=== PATIENT | male | born 1950 | race Native Hawaiian/Other Pacific Islander ===

== ENCOUNTER 2017-07-19 17:18 | Emergency (ER) | payer OTHER, MEDICARE ==
[~2017-07-19] VITALS: Ht 165.1 cm; Wt 86.2 kg
[2017-07-19 20:04] VITALS: BP 166/90; TEMP 95.5
== END 2017-07-19 20:05 | disposition home or self-care (01) ==
LOC: ED 17:18
PROC: 08C8XZZ Extirpation of Matter from Right Cornea, External Approach (ICD-10-PCS; principal; 2017-07-19)
DX: T15.01XA Foreign body in cornea, right eye, initial encounter (principal)
CPT/HCPCS: 99282

== ENCOUNTER 2018-07-30 11:46 | Emergency (ER) | payer OTHER, MEDICARE ==
[~2018-07-30] VITALS: Ht 162.6 cm; Wt 90.7 kg
[2018-07-30 12:23] LABS: PLATELET COUNT 303 K/uL (142-355)
[2018-07-30] MEDS ORDERED: HYZAAR1 TA2 PO (12:26)
[2018-07-30] MEDS ORDERED: UNITH DIRECT50 MCG PO (12:28)
[2018-07-30] MEDS ORDERED: EZET10TA13 PO (12:29)
[2018-07-30] MEDS ORDERED: METO25TA4 PO (12:30)
[2018-07-30] MEDS ORDERED: ASPIRIN 81 LOW81 MG PO (12:31)
[2018-07-30] MEDS ORDERED: PRAVACHOL80 MG PO (12:31)
[2018-07-30 12:32] LABS: POTASSIUM 4.4 mmol/L (3.6-5.2); SODIUM 140 mmol/L (136-145)
[2018-07-30] MEDS ORDERED: PANTOPRAZOLE 40MG TA PO (12:32)
[2018-07-30] MEDS ORDERED: FLINTSTONES PO (12:33)
[2018-07-30 13:53] VITALS: BP 142/75; TEMP 98
== END 2018-07-30 13:53 | disposition home or self-care (01) ==
LOC: ED 11:46
PROVIDERS: Emergency Medicine
DX: R53.1 Weakness (principal); R00.1 Bradycardia, unspecified
CPT/HCPCS: 36415; 80053; 81000; 82550; 82553; 84484; 85027; 93005; 99283

== ENCOUNTER 2018-09-18 13:42 | Outpatient (CLI) | payer OTHER, MEDICARE ==
[~2018-09-18 13:42] MED LIST: ASPIRIN 81 LOW81 MG PO; EZET10TA13 PO; FLINTSTONES PO; HYZAAR1 TA2 PO; METO25TA4 PO; PANTOPRAZOLE 40MG TA PO; PRAVACHOL80 MG PO; UNITH DIRECT50 MCG PO
== END 2018-09-18 20:34 | disposition home or self-care (01) ==
LOC: RAD 13:42
DX: M54.2 Cervicalgia (principal)

== ENCOUNTER 2019-12-16 15:13 | Outpatient (CLI) | payer OTHER, MEDICARE | END 2019-12-16 20:29 | disposition home or self-care (01) | LOC: CT 15:13 | DX: G44.211 Episodic tension-type headache, intractable (principal) ==

== ENCOUNTER 2019-12-17 12:43 | Outpatient (CLI) | payer OTHER, MEDICARE ==
[2019-12-17 12:58] LABS: PLATELET COUNT 317 K/uL (142-355)
[2019-12-17 13:25] LABS: POTASSIUM 4.4 mmol/L (3.6-5.2)
== END 2019-12-17 22:53 | disposition home or self-care (01) ==
LOC: LAB 12:43
PROVIDERS: Internal Medicine
DX: I10 Essential (primary) hypertension (principal); G44.211 Episodic tension-type headache, intractable; M10.9 Gout, unspecified
CPT/HCPCS: 80053; 80061; 81000; 84439; 84443; 84550; 85027; 85651

== ENCOUNTER 2020-02-01 13:22 | Outpatient (CLI) | payer OTHER, MEDICARE | END 2020-02-01 23:04 | disposition home or self-care (01) | LOC: MRI 13:22 | DX: R51 Headache (principal) | CPT/HCPCS: 36415; 82565; 84520; A9576 ==

== ENCOUNTER 2020-12-08 12:38 | Outpatient (CLI) | payer OTHER, MEDICARE ==
[2020-12-08 13:00] LABS: PLATELET COUNT 273 K/uL (142-355)
[2020-12-08 13:26] LABS: POTASSIUM 4.1 mmol/L (3.6-5.2)
== END 2020-12-08 19:48 | disposition home or self-care (01) ==
LOC: LABW 12:38
PROVIDERS: ATTEND Internal Medicine
DX: I10 Essential (primary) hypertension (principal); E03.9 Hypothyroidism, unspecified; M10.9 Gout, unspecified
CPT/HCPCS: 36415; 80053; 80061; 81000; 84439; 84443; 84550; 85027

== ENCOUNTER 2021-07-21 08:30 | Outpatient (CLI) | payer OTHER, MEDICARE ==
[2021-07-21 08:50] LABS: PLATELET COUNT 269 K/uL (142-355)
[2021-07-21 09:14] LABS: POTASSIUM 3.9 mmol/L (3.6-5.2)
== END 2021-07-21 20:00 | disposition home or self-care (01) ==
LOC: LABW 08:30
PROVIDERS: ATTEND Internal Medicine
DX: I10 Essential (primary) hypertension (principal); M10.9 Gout, unspecified
CPT/HCPCS: 36415; 80053; 80061; 81000; 84439; 84443; 84550; 85027

== ENCOUNTER 2021-10-24 16:34 | Outpatient (CLI) | payer OTHER, MEDICARE | END 2021-10-24 19:31 | disposition home or self-care (01) | LOC: RAD 16:34 | PROVIDERS: ATTEND Internal Medicine | DX: S33.5XXA Sprain of ligaments of lumbar spine, initial encounter (principal); Y92.9 Unspecified place or not applicable ==

== ENCOUNTER 2022-07-09 10:00 | Outpatient (CLI) | payer OTHER, MEDICARE | END 2022-07-09 20:19 | disposition home or self-care (01) | LOC: RAD 10:00 | PROVIDERS: ATTEND Internal Medicine | DX: M25.552 Pain in left hip (principal) ==